=== PATIENT | male | born 1955 | race African-American/Black ===

== ENCOUNTER 2016-07-04 00:36 | Emergency (ER) | payer MEDICARE ==
[~2016-07-04 00:36] MED LIST: AMLO2.5T2 PO; ENAL10TA; SERT50TA PO
--- NOTE | 2016-07-04 00:50 | NUR ---
PT NOT IN LOBBY WHEN CALLED FOR TRIAGE
--- NOTE | 2016-07-04 01:10 | NUR ---
CALLED FOR TRIAGE; NOT IN EITHER LOBBY OR HALLWAY
--- NOTE | 2016-07-04 01:48 | NUR ---
CALLED AGAIN FOR TRIAGE; NO WHERE TO BE FOUND.
== END 2016-07-04 01:51 | disposition left against medical advice (07) ==
LOC: ER 00:36
DX: Z53.21 Procedure and treatment not carried out due to patient leaving prior to being seen by health care provider (principal)
CPT/HCPCS: A4606; Z7610

== ENCOUNTER 2017-09-04 15:35 | Emergency (ER) | payer MEDICARE ==
[~2017-09-04] VITALS: Ht 182.9 cm; Wt 83.9 kg
--- NOTE | 2017-09-04 15:40 | NUR ---
PT TO ED DT FOR POSSIBLE DRUG USE-- PATIENT IS ACTING BIZZARE,. SCREAMING AND YELLING TO STAFFS. PATIENT IS AFEBRILE. NO MEDICAL COMPLAINT. VSS
--- NOTE | 2017-09-04 16:37 | NUR ---
URINE SAMPLE SENT TO LAB
[2017-09-04 19:41] VITALS: BP 125/68
== END 2017-09-04 19:41 | disposition home or self-care (01) ==
LOC: ER 15:37
DX: F15.10 Other stimulant abuse, uncomplicated (principal); F13.10 Sedative, hypnotic or anxiolytic abuse, uncomplicated; F19.10 Other psychoactive substance abuse, uncomplicated; F41.9 Anxiety disorder, unspecified; F17.200 Nicotine dependence, unspecified, uncomplicated; F10.10 Alcohol abuse, uncomplicated; Y90.9 Presence of alcohol in blood, level not specified; I10 Essential (primary) hypertension
CPT/HCPCS: 80305; A4606; Z7610

== ENCOUNTER 2018-11-05 19:22 | Emergency (ER) | payer MEDICARE ==
[~2018-11-05] VITALS: Ht 188 cm; Wt 98.4 kg
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
--- NOTE | 2018-11-05 20:02 | NUR ---
PATIENT NOT ABLE TO PROVIDE URINE SAMPLE, MD SALINAS
[2018-11-05 20:05] LABS: BASOPHILS # (AUTO) 0.1 /CMM (0.0-0.2); BASOPHILS % (AUTO) 0.6 % (0.0-2.0); EOSINOPHILS % (AUTO) 1.5 % (0.0-6.0); HEMATOCRIT 37 % (39-51); LYMPHOCYTES # (AUTO) 1.4 /CMM (0.8-4.8); LYMPHOCYTES % (AUTO) 15.2 % (20.0-44.0); MEAN CORPUSCULAR HGB CONC 35 g/dl (31.0-36.0); MEAN CORPUSCULAR VOLUME 91 fL (80-96); MONOCYTES # (AUTO) 0.5 /CMM (0.1-1.30); MONOCYTES % (AUTO) 6.1 % (2.0-12.0); NEUTROPHILS # (AUTO) 6.9 /CMM (1.8-8.9); NEUTROPHILS % (AUTO) 76.6 % (43.0-81.0); PLATELET COUNT (AUTO) 234 /CMM (150-450); RED BLOOD CELL COUNT(AUTO) 4.07 MIL/uL (4.5-6.0)
[2018-11-05 20:13] LABS: CALCIUM, SERUM 8.8 mg/dL (8.5-10.1); CARBON DIOXIDE 27 mmol/L (21-32); CHLORIDE 104 mmol/L (98-107); CREATININE 3.1 mg/dL (0.6-1.3); GLUCOSE 137 mg/dL (74-106); POTASSIUM 3.1 mmol/L (3.5-5.1); SODIUM SERUM 142 mmol/L (136-145); UREA NITROGEN, BLOOD 22 mg/dL (7-18)
[2018-11-05 20:19] LABS: ALANINE AMINOTRANSFERASE 18 U/L (12-78); ALBUMIN 3.6 g/dL (3.4-5.0); ALCOHOL, BLOOD < 3 mg/dL (0-0); ALKALINE PHOSPHATASE 89 U/L (46-116); ASPARTATE AMINOTRANSFERASE 33 U/L (15-37); BILIRUBIN,DIRECT 0.1 mg/dL (0.0-0.2); BILIRUBIN,TOTAL 0.3 mg/dL (0.2-1.0); TOTAL PROTEIN, SERUM 7.5 g/dL (6.4-8.2)
[2018-11-05 20:20] LABS: ACETAMINOPHEN 0 ug/ml (10-30)
[2018-11-05] MEDS ORDERED: POTASSIUM CHLORIDE 20 MEQ TAB.PRT.SR PO ONE ×2 (20:30→20:44)
--- NOTE | 2018-11-05 20:52 | NUR ---
REBECA (FRIEND): [phone] WILL TRY TO PHLEBOTOMY TECHNOLOGIST PATIENT.
--- NOTE | 2018-11-05 21:54 | NUR ---
Patient discharged to home in stable condition. Written and verbal after care instructions given. Patient verbalizes understanding of instruction. Patient picked up by friends: REBECA MORALES: [phone] Anastacia [place]: [phone]
--- NOTE | 2018-11-05 21:55 | NUR ---
REBECA PICKED UP FRIEND.
[2018-11-05 21:58] LABS: APPEARANCE,URINE Clear (CLEAR); BILIRUBIN,URINE Negative (NEGATIVE); BLOOD, URINE Negative Ery/uL (NEGATIVE); COLOR,URINE Yellow (YELLOW); KETONES,URINE Trace (NEGATIVE); LEUKOCYTE ESTERASE ,URINE Small (NEGATIVE); NITRITE, URINE Positive (NEGATIVE); PH,URINE 5.5 (5.0-8.0); PROTEIN,URINE Negative (NEGATIVE); UGLUCOSE Negative (NEGATIVE)
[2018-11-05 22:04] LABS: RBC,URINE 0-2 /HPF (0-2); WBC,URINE 21-50 /HPF (0-3)
[2018-11-05 22:05] LABS: BACTERIA,URINE 4+ /HPF (None Seen); SQUAMOUS EPITHELIAL CELL,UR Few /HPF (None Seen)
[2018-11-05 22:18] VITALS: BP 106/62
== END 2018-11-05 21:55 | disposition home or self-care (01) ==
LOC: ER 19:27
DX: Z00.8 Encounter for other general examination (principal); E87.6 Hypokalemia; I10 Essential (primary) hypertension; N40.0 Benign prostatic hyperplasia without lower urinary tract symptoms; F41.9 Anxiety disorder, unspecified; F17.200 Nicotine dependence, unspecified, uncomplicated; Z79.899 Other long term (current) drug therapy
CPT/HCPCS: 36415; 80048; 80076; 80305; 80307; 80329; 81001; 85025; 87086; 99283; G0480; 81000-TC; 87186-TC

== ENCOUNTER 2021-08-22 07:02 | Emergency (ER) | payer MEDICARE ==
[~2021-08-22] VITALS: Ht 188 cm; Wt 95.3 kg
[~2021-08-22 07:02] MED LIST changes: -ENAL10TA; +ENAL10TA39
--- NOTE | 2021-08-22 07:15 | NUR ---
PATIENT BIBRA 59 C/O SMOKED METH. DENIES ANY COMPLAINTS. GIVEN 10MG IM VERSED CORPORATE SECURITY OFFICER. PATIENT IS A/O X 2-3. RR EVEN AND UNLABORED, NO ACUTE DISTRESS NOTED. PATIENT TAKEN TO ER BED 14. SITTER AT BEDSIDE. CONNECTED TO MONITORS.
--- NOTE | 2021-08-22 07:35 | NUR ---
COVID SWAB COLLECTED AND SENT TO LAB
--- NOTE | 2021-08-22 07:35 | NUR ---
URINE COLLECTED AND SENT TO LAB
--- NOTE | 2021-08-22 07:35 | NUR ---
LAB AT BEDSIDE
[2021-08-22 07:45] LABS: BASOPHILS % (AUTO) 0.2 % (0.0-2.0); EOSINOPHILS % (AUTO) 1.2 % (0.0-6.0); HEMATOCRIT 40 % (39-51); HEMOGLOBIN 13.3 g/dL (13.5-17.5); LYMPHOCYTES # (AUTO) 1.2 K/uL (0.8-4.8); LYMPHOCYTES % (AUTO) 9.5 % (20.0-44.0); MEAN CORPUSCULAR HGB CONC 34 g/dl (31.0-36.0); MEAN CORPUSCULAR VOLUME 89 fL (80-96); MONOCYTES # (AUTO) 0.7 K/uL (0.1-1.30); MONOCYTES % (AUTO) 5.6 % (2.0-12.0); NEUTROPHILS # (AUTO) 10.5 K/uL (1.8-8.9); NEUTROPHILS % (AUTO) 83.5 % (43.0-81.0); PLATELET COUNT (AUTO) 209 K/uL (150-450); RED BLOOD CELL COUNT(AUTO) 4.46 MIL/uL (4.5-6.0); WHITE BLOOD COUNT (AUTO) 12.5 K/uL (4.3-11.0)
[2021-08-22 07:47] LABS: BILIRUBIN,URINE NEGATIVE (NEGATIVE); COLOR,URINE YELLOW (YELLOW); LEUKOCYTE ESTERASE ,URINE TRACE (NEGATIVE); NITRITE, URINE NEGATIVE (NEGATIVE); PH,URINE 5.5 (5.0-8.0); PROTEIN,URINE NEGATIVE (NEGATIVE); UGLUCOSE NEGATIVE (NEGATIVE); UROBILINOGEN,URINE 0.2 EU/dL (0.2)
[2021-08-22 07:51] LABS: BACTERIA,URINE Few /HPF (None Seen); RBC,URINE 0-2 /HPF (0-2); SQUAMOUS EPITHELIAL CELL,UR Moderate /HPF (None Seen)
[2021-08-22 07:56] LABS: CALCIUM, SERUM 8.7 mg/dL (8.5-10.1); CARBON DIOXIDE 23 mmol/L (21-32); CHLORIDE 104 mmol/L (98-107); CREATININE 1.9 mg/dL (0.6-1.3); GLUCOSE 163 mg/dL (74-106); POTASSIUM 2.9 mmol/L (3.5-5.1); SODIUM SERUM 141 mmol/L (136-145); UREA NITROGEN, BLOOD 13 mg/dL (7-18)
[2021-08-22 08:04] LABS: ALANINE AMINOTRANSFERASE 13 U/L (12-78); ALBUMIN 3.6 g/dL (3.4-5.0); ALKALINE PHOSPHATASE 95 U/L (46-116); ASPARTATE AMINOTRANSFERASE 14 U/L (15-37); BILIRUBIN,DIRECT 0.1 mg/dL (0.0-0.2); BILIRUBIN,TOTAL 0.4 mg/dL (0.2-1.0); TOTAL PROTEIN, SERUM 7.7 g/dL (6.4-8.2)
[2021-08-22 08:15] LABS: ACETAMINOPHEN 0 ug/ml (10-30); ALCOHOL, BLOOD < 3 mg/dL (0-0)
--- NOTE | 2021-08-22 10:53 | NUR ---
SW attempted to interview pt., but he is still drowsy. Pt. is alert and oriented x2/3. SW will follow-up later.
[2021-08-22] MEDS: POTASSIUM CHLORIDE 20 MEQ TAB.PRT.SR PO ONE (12:09)
[2021-08-22] MEDS ORDERED: POTASSIUM CHLORIDE 20 MEQ TAB.PRT.SR PO ONE (12:09)
--- NOTE | 2021-08-22 13:47 | NUR ---
"SS Note: SS was requested to see pt. regarding overdose. Pt. Is a 66-year-old male who demonstrates adequate insight to the reason for hospitalization. Per EMR, pt. was brought into the ER for aggressive behavior and was smoking crystal meth. Per pt., he did not remember what happened. Pt. was oriented x3, alert, and cooperative. During interview, pt. was capable of following directions and appeared unkempt. Pt.'s speech was at a normal rate and pt.'s mood was elevated. Pt. reported no hx of mental health, denies suicidal ideation, or homicidal ideation. Pt. stated that he no longer does crystal meth, and his current use is marijuana. Per toxicology screen, pt. is positive for marijuana, amphetamine, and benzodiazepines. Pt. denies auditory hallucinations, visual hallucinations, paranoia, or delusions. Pt. stated that he takes medicine for his anxiety and is consistent with it. REY explored pt.'s living situation. Per pt., he is homeless but has a motor home in [place]. REY provided pt. with shoes, jail resources, and a TAP card upon pt. request. Plan: SW provided available resources and pt. accepted. Upon discharge, per pt., he can return to his motor home in [place]. REY provided pt. with TAP card and shoes. Pt. signed homeless waiver and it's placed in chart. REY notified that pt. is safe for discharge. Resources Provided: Year-round shelters: [facility] [address] [place] [address] ; [facility] [address] [place] [address]; [facility] [address] [place] [facility] [address] Winter Shelters: Adan Dominique [place] Provider: [facility] [place] Address: [address] [place], [address] # of Beds: 47 Population Served: [facility] 6 | [facility] Deidra Magallanes [place] Provider: [facility] Address: [address] [facility], [address] # of Beds: 66 Population Served: [employer] [facility] [place] Provider: [facility] Address: [address] [facility], [address] # of Beds: 56 Population Served: [facility] [place] Shae Man[place]rez[place] Provider: /[facility] Address: [address] [facility], [address] # of Beds: 49 Population Served: [facility] S[facility] 8 | [facility] Provider: [facility] Serve Address: [address] [facility] [address], [address] # of Beds: 37 Population Served: Coed Hygiene: [facility]: [address] [facility]. [place] ; [facility] [address] [facility] ; [facility] [address] [facility] . Food Resources: [place] [facility] at [facility]- [address] [facility]; Meet Each Need with Dignity ([facility]) [address] [facility]; [facility] Er Food Pantry [address] [facility]; [facility] [address] [facility]. Mental Health resources provided: [facility] [address] [place] [address] ; [facility] [place] [address] [facility] [address], [place], [place] [phone] ; Natacha Michaud [facility] [address] [place] [address] ; [facility] [address] [place], [place] [phone] Healthcare Clinics: [facility] [address] [facility], [address] [place]. [place] ; [facility] [address] [facility] [address] [place] [address]; [facility] [[email or web address]] [address] [facility]. [place] [phone] Counseling--Outpatient [facility] [address], [address] [place], [place] [address] (Specializes in in-depth psychotherapy for emotional distress: anxiety, depression, interpersonal conflicts, life transitions, childhood abuse) [facility] [address] [place], [place] [phone] (Assist with solving problem marital difficulties, separation & divorce, aging parents, & grief, chronic & terminal illness) [facility] [address] [place] [address] (Deal with loss & grief, anxiety, marital difficulties) Homebound/Mental Health Services [address] [facility] [address] [place] [address] (Provide in-home mental services to people who are incapable of leaving their homes) [facility] of [facility] Elderly Senior Service/Resource Center [address] [place] [address] [facility] [address] [place], [place] [address] PSYCHIATRIC OUTPATIENT SERVICES [facility] Partial Hospitalization and Intensive Outpatient Program (Managed Care and [place] Only)[address] [facility] [phone] [facility] Partial Hospitalization and Outpatient [id number] [facility] [address] [place], [place] [phone] [facility] Mental Health [place] Fzm[address] [facility] [address] [place], [place] [phone] [facility] Partial Hospitalization and Outpatient [id number] [place], [phone] Substance Abuse resources provided included: [facility] Substance Abuse Self-Helpline (SAS) ; CRI -HELP [address] [facility]. [place] [address] ; [facility] [address] [facility] [address] ; [facility] [address] [facility] [address] ; [facility] [place] [address] [facility] [address] ; [facility] [address] [facility] [address] ; [facility] [address] To [facility] [phone] ; [facility] Substance Abuse Helpline(SAS)[facility] ; [facility] ; [facility]; [facility]; [facility] [place]; [facility] [place]; [facility] [place]; [facility] Starr; [facility]; [facility]'s [place], [facility]. [place]; Alcoholics Anonymous -SFV; Zz-Achl-Lylasqx ; Marijuana Anonymous -SFV; Narcotics Anonymous [email or web address];"
[2021-08-22 14:32] VITALS: BP 132/75
--- NOTE | 2021-08-22 14:32 | NUR ---
Patient discharged to home in stable condition. Written and verbal after care instructions given. Patient verbalizes understanding of instruction.
== END 2021-08-22 14:32 | disposition home or self-care (01) ==
LOC: EDBD → ER 07:09
DX: R45.1 Restlessness and agitation (principal); F15.10 Other stimulant abuse, uncomplicated; E87.6 Hypokalemia; Z20.822 Contact with and (suspected) exposure to COVID-19; I10 Essential (primary) hypertension; N40.0 Benign prostatic hyperplasia without lower urinary tract symptoms; H54.7 Unspecified visual loss; Z85.038 Personal history of other malignant neoplasm of large intestine; F41.9 Anxiety disorder, unspecified; F17.200 Nicotine dependence, unspecified, uncomplicated; Z79.899 Other long term (current) drug therapy
CPT/HCPCS: 36415; 80048-TC; 80076-TC; 81001; 82550-TC; 85025-TC; C9803; G0480

== ENCOUNTER 2021-08-29 13:54 | Emergency (ER) | payer MEDICARE, OTHER ==
[~2021-08-29] VITALS: Ht 188 cm; Wt 95.3 kg
--- NOTE | 2021-08-29 14:16 | NUR ---
SEEN BY DR ELLSWORTH
--- NOTE | 2021-08-29 14:18 | NUR ---
WANDED BY SECURITY
--- NOTE | 2021-08-29 18:20 | NUR ---
CALLED REBECA (FRIEND FOR TRANSPORT) LEFT VOICEMAIL
--- NOTE | 2021-08-29 18:33 | NUR ---
CALLED REBECA, STATES WILL ARRANGE FOR SOMEONE TO PICK HIM UP KRISTAL
--- NOTE | 2021-08-29 19:20 | NUR ---
REBECA ETA 30-45 MINUTES
[2021-08-30 06:18] VITALS: BP 121/70
--- NOTE | 2021-08-30 06:18 | NUR ---
Patient discharged to home in stable condition. Written and verbal after care instructions given. Patient verbalizes understanding of instruction.
== END 2021-08-30 06:19 | disposition home or self-care (01) ==
LOC: ER 13:58
DX: F41.9 Anxiety disorder, unspecified (principal); I50.9 Heart failure, unspecified; F17.200 Nicotine dependence, unspecified, uncomplicated; Z79.899 Other long term (current) drug therapy